=== PATIENT | male | born 1990 | race Caucasian/White ===

== ENCOUNTER → 2021-07-04 | Outpatient (CLI) | payer OTHER ==
--- NOTE | 2021-07-04 16:51 | XR ---
EXAMINATION TYPE: XR shoulder complete LT DATE OF EXAM: 07/04/2021 4:11 PM INDICATION: Patient age:Male; 30 years old; Reason for study: S43.402A; COMPARISON: None TECHNIQUE: The left shoulder was examined in AP, internally rotated and axillary projections. FINDINGS: No evidence of acute osseous pathology, joint dislocation, or soft tissue swelling. The remaining por tions of the visualized chest are unremarkable. IMPRESSION: No acute osseous pathology.
== END | disposition home or self-care (01) ==
LOC: RADXRMAIN 15:57
PROVIDERS: ATTEND Emergency Medicine
DX: S43.402A Unspecified sprain of left shoulder joint, initial encounter (principal); X58.XXXA Exposure to other specified factors, initial encounter

== ENCOUNTER 2021-08-26 11:54 | Emergency (ER) | payer OTHER ==
[2021-08-26 12:11] VITALS: BP 123/85; PULSE 85; RESP 20; TEMP 98
--- NOTE | 2021-08-26 12:23 | ED ---
General Adult HPI - General Chief complaint: Head Injury Stated complaint: Facial injury, [facility] Time Seen by Provider: 08/26/21 12:14 Source: patient, RN notes reviewed, old records reviewed Mode of arrival: ambulatory Limitations: no limitations - History of Present Illness Initial comments: 30-year-old male who presents for evaluation of head injury which occurred while at work this morning around 8 AM. He was head butted in the nose and forehead region. There was no loss consciousness. Patient is otherwise healthy. He had a significant nosebleed which resolved prior to arrival. - Related Data Allergies Allergy/AdvReac Type Severity Reaction Status Date / Time No Known Allergies Allergy Verified 08/26/21 12:11 Review of Systems ROS Statement: Those systems with pertinent positive or pertinent negative responses have been documented in the HPI. ROS Other: All systems not noted in ROS Statement are negative. Past Medical History Past Medical History: No Reported History Past Surgical History: No Surgical Hx Reported Past Psychological History: ADD/ADHD Smoking Status: Never smoker Past Alcohol Use History: Occasional Past Drug Use History: None Reported General Exam Limitations: no limitations General appearance: alert, in no apparent distress Head exam: Present: atraumatic, normocephalic Eye exam: Present: normal appearance, PERRL ENT exam: Present: TM's normal bilaterally, other (Dried blood at the right nare, no septal hematoma, no active bleeding, no deformity) Neck exam: Present: normal inspection. Absent: tenderness, meningismus Respiratory exam: Present: normal lung sounds bilaterally. Absent: respiratory distress, wheezes Cardiovascular Exam: Present: regular rate, normal rhythm GI/Abdominal exam: Present: soft. Absent: distended, tenderness, guarding Extremities exam: Present: normal inspection, normal capillary refill. Absent: pedal edema Neurological exam: Present: alert, oriented X3, CN II-XII intact, normal gait. Absent: motor sensory deficit Psychiatric exam: Present: normal affect, normal mood Skin exam: Present: warm, dry, intact. Absent: cyanosis, diaphoretic Course Vital Signs 08/26/21 12:09 Temperature 98 F Pulse Rate 85 Respiratory 20 Rate Blood Pressure 123/85 O2 Sat by Pulse 99 Oximetry Medical Decision Making - Medical Decision Making 30-year-old male well-appearing stable vitals, no neurological findings, no active nosebleed, injury occurred about 4 hours prior to arrival. Patient's is eager for discharge. He has no significant headache. This is a low mechanism injury, we discussed imaging and both agreed that it was not necessary at this time. Disposition Clinical Impression: Concussion without loss of consciousness, Epistaxis due to trauma Disposition: HOME SELF-CARE Condition: Good Instructions (If sedation given, give patient instructions): Nosebleed (ED), Head Injury (ED) Is patient prescribed a controlled substance at d/c from ED?: No Referrals: Ana Lo MD [Primary Care Provider] - 1-2 days Time of Disposition: 12:23
== END 2021-08-26 12:38 | disposition home or self-care (01) ==
LOC: EC 11:54
DX: S06.0X0A Concussion without loss of consciousness, initial encounter (principal); R04.0 Epistaxis; W22.8XXA Striking against or struck by other objects, initial encounter; Y99.0 Civilian activity done for income or pay
CPT/HCPCS: 99283

== ENCOUNTER → 2023-10-06 | Outpatient (CLI) | payer BC ==
[2023-10-06 23:31] LABS: Basophils # (A) 0.04 X 10*3/uL (0.00-0.10); Basophils % (A) 0.8 %; Eosinophils % (A) 1.9 %; HCT 49.5 % (39.6-50.0); HGB 16.8 g/dL (13.0-17.0); Lymphocytes # (A) 1.43 X 10*3/uL (0.90-5.00); Lymphocytes % (A) 26.9 %; MCH 30.5 pg (27.0-32.0); MCHC 33.9 g/dL (32.0-37.0); Mean Platelet Volume 9.3 FL (9.5-12.2); Monocytes # (A) 0.44 X 10*3/uL (0.20-1.00); Monocytes % (A) 8.3 %; NRBC Per 100 WBC 0 X 10*3/uL (0.00-0.01); Neutrophils # (A) 3.29 X 10*3/uL (1.80-7.70); Neutrophils % (A) 61.9 %; Platelet Count 187 X 10*3/uL (140-440); RDW 12.3 % (11.5-14.5); WBC 5.31 X 10*3/uL (4.50-10.00)
[2023-10-07 06:26] LABS: ALT 21 U/L (10-49); AST 29 U/L (14-35); Albumin/Globulin Ratio 2.78 Ratio (1.60-3.17); Alkaline Phosphatase 67 U/L (41-126); Blood Urea Nitrogen 10.9 mg/dL (9.0-27.0); Calcium 9.5 mg/dL (8.7-10.3); Carbon Dioxide 29.5 mmol/L (21.6-31.8); Chloride 102 mmol/L (96-109); Chol/HDL Ratio 2.73 Ratio; Globulin 1.8 g/dL (1.6-3.3); Glucose 85 mg/dL (70-110); Potassium 5.5 mmol/L (3.5-5.5); Sodium 139 mmol/L (135-145); Total Bilirubin 1.3 mg/dL (0.3-1.2); Total Protein 6.8 g/dL (6.2-8.2)
[2023-10-07 06:47] LABS: T4, Free (Free Thyroxine) 1.33 ng/dL (0.80-1.80)
== END | disposition home or self-care (01) ==
LOC: LABWHC1 11:27
PROVIDERS: ATTEND Family Medicine
DX: Z11.59 Encounter for screening for other viral diseases (principal); R63.4 Abnormal weight loss
CPT/HCPCS: 36415; 80053; 80061; 84439; 84443; 85025; 86803